=== PATIENT | male | born 1980 | race Caucasian/White ===

== ENCOUNTER 2019-03-29 12:44 | Emergency (ER) | payer MEDICARE, MEDICAID ==
[~2019-03-29] VITALS: Ht 185.4 cm; Wt 68.0 kg
[~2019-03-29 12:44] MED LIST: ARIP10TA15 PO; OXCA300T4 PO
[2019-03-29 13:02] VITALS: BP 140/41
--- NOTE | 2019-03-29 14:31 | NUR ---
UPON TRIAGE, WITH PT. AND ATTEMPTING TO CHANGE THE PT. AND LOCK UP HIS BELONGINGS, PT. BECAME AGITATED AND STARTED YELLING AND STARTED TO WALK AWAY FROM [facility]. SECURITY WAS CALLED AND HE BECAME ZENIA AND WALKED AWAY. REFUSED ANY CARE.
== END 2019-03-29 14:34 | disposition left against medical advice (07) ==
LOC: ER 12:44
DX: R45.851 Suicidal ideations (principal); Z53.21 Procedure and treatment not carried out due to patient leaving prior to being seen by health care provider

== ENCOUNTER 2019-04-07 20:36 | Emergency (ER) | payer MEDICARE, MEDICAID | END 2019-04-07 21:38 | disposition left against medical advice (07) | LOC: ER 20:36 | DX: Z00.8 Encounter for other general examination (principal); Z53.21 Procedure and treatment not carried out due to patient leaving prior to being seen by health care provider ==

== ENCOUNTER 2019-05-14 01:01 | Inpatient (IN) | payer MEDICARE, MEDICAID ==
[~2019-05-14] VITALS: Ht 185.4 cm; Wt 87.4 kg
[2019-05-14] MEDS ORDERED: ondansetron 4mg rapidly disintigrating tab PO ONE (01:45)
[2019-05-14 02:12] LABS: BASOPHILS % (AUTO) 0.2 % (0-1); EOSINOPHILS % (AUTO) 0.2 % (0-6); HEMOGLOBIN 15.1 g/dl (14.0-17.9); MEAN CORPUSCULAR HEMOGLOBIN 31.3 PG (27.0-31.0); MONOCYTES # (AUTO) 0.8 X10'3 (0-0.9)
[2019-05-14 02:13] LABS: HEMATOCRIT 43.3 % (42.0-52.0); LYMPHOCYTES # (AUTO) 0.7 X10'3 (1.1-4.8); LYMPHOCYTES % (AUTO) 4.8 % (21-51); MEAN CORPUSCULAR HGB CONC 34.9 g/dL (33.0-36.5); MEAN CORPUSCULAR VOLUME 89.7 FL (78-98); MEAN PLATELET VOLUME 8.7 FL (7.4-10.4); MONOCYTES % (AUTO) 5.2 % (2-12); NEUTROPHILS % (AUTO) 89.6 % (42-75); PLATELET COUNT 283 X10'3 (140-440); RED BLOOD COUNT 4.83 X10'6 (4.70-6.10); RED CELL DISTRIBUTION WIDTH 14.2 % (11.5-14.5); WHITE BLOOD COUNT 15.6 X10'3 (4.5-11.0)
[2019-05-14 02:17] LABS: URINE AMPHETAMINE SCREEN NEGATIVE (Neg); URINE BARBITUATE SCREEN NEGATIVE (Neg); URINE BENZODIAZEPINES SCREEN NEGATIVE (Neg); URINE CANNABINOID SCREEN NEGATIVE (Neg); URINE COCAINE SCREEN NEGATIVE (Neg); URINE METHADONE SCREEN NEGATIVE (Neg); URINE OPIATE SCREEN NEGATIVE (Neg); URINE PHENCYCLIDINE SCREEN NEGATIVE (Neg)
[2019-05-14 02:18] LABS: ALANINE AMINOTRANSFERASE 33 U/L (12-78); ALBUMIN 4.3 G/DL (3.4-5.0); ALBUMIN/GLOBULIN RATIO 1.1 (1.1-1.5); ALKALINE PHOSPHATASE 81 IU/L (46-116); ANION GAP 15 (8-16); ASPARTATE AMINO TRANSFERASE 24 U/L (10-37); BILIRUBIN,TOTAL 0.2 MG/DL (0.1-1.0); BLOOD UREA NITROGEN 16 MG/DL (7-18); BUN/CREATININE RATIO 14.5 (5.4-32.0); CALCIUM 9.2 MG/DL (8.5-10.1); CHLORIDE 108 MMOL/L (99-107); GLUCOSE 128 MG/DL (70-104); POTASSIUM 4.3 MMOL/L (3.5-5.1); SODIUM 145 MMOL/L (135-145); TOTAL CARBON DIOXIDE 22.1 MMOL/L (24-32); TOTAL PROTEIN 8.3 G/DL (6.4-8.2); eGFR 74 ML/MIN
--- NOTE | 2019-05-14 02:19 | NUR ---
patient in bed eyes closed rr even un labored no observable s/s of acute stress at this time will continue to monitor waiting for lab results
[2019-05-14 02:20] LABS: ETHANOL < 0.010 GM/DL (0.0-0.010)
[2019-05-14 02:51] LABS: ACETAMINOPHEN < 2.0 UG/ML (10-30)
[2019-05-14 03:16] LABS: ABG BASE EXCESS -1.2 mmol/L (-2.0-3.0); ABG PH (T) 7.442 (7.350-7.450); ABG PO2 (T) 76.3 mmHg (83-108); ALLEN'S TEST POSITIVE; FCOHb 2.2 % (0.5-1.5); FMetHb 0.1 % (0.3-1.12); FO2Hb 93.8 % (94-100); TOTAL HEMOGLOBIN 15.3 G/dl (14.0-17.9)
--- NOTE | 2019-05-14 03:41 | NUR ---
SPOKE WITH rod from [facility] control ABG Q 4 HRS BMP Q2 HRS SALICYLATE Q 2HRS ACTIVATED CHARCOAL 50 GRAMS BI-CARB 3 AMPS D5W AT 200 mL/HR/, BACK OFF AND BOLUS WITH NS IF PH >7.55 KEEP SERUM PH 7.45-7.55
[2019-05-14] MEDS ORDERED: sodium bicarbonate (8.4%) inj. 100 MEQ in sodium chloride 0.45% 1,000 ML IV ONE (03:50)
[2019-05-14] MEDS ORDERED: sodium bicarbonate (8.4%) inj. 150 MEQ in dextrose 5%-water 1,000 ML IV SCH (03:55)
[2019-05-14] MEDS ORDERED: morphine 2 MG/ML inj. syringe IV PRN (04:20)
[2019-05-14] MEDS: K, MAG and/or Phos replacement - Verify level? MC SCH ×2 (04:20→06:56)
[2019-05-14] MEDS ORDERED: potassium CL 10mEq/100ml bag 100 ML IV PRN ×2 (04:20)
[2019-05-14] MEDS ORDERED: ondansetron/PF 4mg/2ml inj IV PRN (04:20)
[2019-05-14] MEDS ORDERED: potassium Cl 20 mEq SR tablet PO PRN ×2 (04:20)
[2019-05-14] MEDS ORDERED: acetaminophen 325mg tablet PO PRN ×2 (04:20)
[2019-05-14] MEDS: sodium bicarbonate (8.4%) inj. 75 MEQ in dextrose 5%-water 500 ML IV SCH ×4 (04:25→10:07)
[2019-05-14 04:31] LABS: ALBUMIN 4.3 G/DL (3.4-5.0); ANION GAP 12 (8-16); BLOOD UREA NITROGEN 16 MG/DL (7-18); BUN/CREATININE RATIO 14.3 (5.4-32.0); CALCIUM 8.9 MG/DL (8.5-10.1); CHLORIDE 108 MMOL/L (99-107); CREATININE 1.12 MG/DL (0.60-1.10); GLUCOSE 124 MG/DL (70-104); POTASSIUM 4.2 MMOL/L (3.5-5.1); SODIUM 144 MMOL/L (135-145); eGFR 73 ML/MIN
--- NOTE | 2019-05-14 04:45 | NUR ---
ZULMA LEVEL INCREASED TO LEVEL 2 R/T SEVERITY OF ASA LEVEL.
[2019-05-14 05:48] LABS: PARTIAL THROMBOPLASTIN TIME 28 SECONDS (22-32)
[2019-05-14 06:09] LABS: ALBUMIN 4.1 G/DL (3.4-5.0); ANION GAP 14 (8-16); BLOOD UREA NITROGEN 17 MG/DL (7-18); BUN/CREATININE RATIO 14.9 (5.4-32.0); CALCIUM 8.9 MG/DL (8.5-10.1); CHLORIDE 107 MMOL/L (99-107); CREATININE 1.14 MG/DL (0.60-1.10); GLUCOSE 135 MG/DL (70-104); POTASSIUM 3.9 MMOL/L (3.5-5.1); SODIUM 143 MMOL/L (135-145); TOTAL CARBON DIOXIDE 22.4 MMOL/L (24-32); eGFR 71 ML/MIN
--- NOTE | 2019-05-14 06:36 | NUR ---
SBAR TO KELVIN RN NOP QUESTIONS OR CONCERNS AFTER ASSUMING CARE
--- NOTE | 2019-05-14 06:44 | NUR ---
SPOKE WITH JACOB AT [facility] GAVE UPDATE PATIETS LABS IMPROVING
[2019-05-14] MEDS ORDERED: pantoprazole 40mg Tablet.DR PO SCH ×2 (07:30→20:00)
[2019-05-14 08:01] VITALS: BP 96/55
--- NOTE | 2019-05-14 08:08 | NUR ---
Received from ER, report from Opal. Oriented pt to room, unit, and plan of care. Pt refuses vu placement.
[2019-05-14 08:31] LABS: ABG BASE EXCESS -0.7 mmol/L (-2.0-3.0); ABG HCO3 20.2 mmol/L (22.0-26.0); ABG OXYGEN SATURATION 98.2 % (95-98); ABG PCO2 (T) 24.9 mmHg (35.0-45.0); ABG PH (T) 7.528 (7.350-7.450); ABG PO2 (T) 109.9 mmHg (83-108); ALLEN'S TEST POSITIVE; FCOHb 0.7 % (0.5-1.5); FMetHb 0.1 % (0.3-1.12); FO2Hb 97.4 % (94-100); TOTAL HEMOGLOBIN 14.7 G/dl (14.0-17.9)
[2019-05-14 09:00] VITALS: BP 97/61
--- NOTE | 2019-05-14 09:11 | NUR ---
Dr Godoy aware of ABG results. Stated to keep pt on bicarb gtt.
[2019-05-14 09:24] LABS: BLOOD UREA NITROGEN 17 MG/DL (7-18); BUN/CREATININE RATIO 14.5 (5.4-32.0); CALCIUM 8.5 MG/DL (8.5-10.1); CHLORIDE 106 MMOL/L (99-107); CREATININE 1.17 MG/DL (0.60-1.10); GLUCOSE 106 MG/DL (70-104); POTASSIUM 3.5 MMOL/L (3.5-5.1); TOTAL CARBON DIOXIDE 26.4 MMOL/L (24-32); eGFR 69 ML/MIN
[2019-05-14 09:26] LABS: ANION GAP 10 (8-16); SODIUM 142 MMOL/L (135-145)
[2019-05-14 10:00] VITALS: BP 107/58
--- NOTE | 2019-05-14 11:32 | NUR ---
Dr Godoy in to make rounds. Pt became very agitated, stating he was leaving. Nursing animal shelter supervisor and gas charger at bedside and explained to pt in detail all of risks involved in leaving AMA, including . Pt continues to state he is leaving. He was informed that we will have to call [employer] once he walks out of hospital. He stated he has already called them himself. IV dc'd. Pt refused to sign AMA form. Security escorted pt out.
== END 2019-05-14 11:30 | disposition left against medical advice (07) | DRG 918 ==
LOC: ER 01:02 → ED HOLD 04:17 → CICU 2S 07:10
PROVIDERS: ADMIT Internal Medicine Critical Care Medicine; ATTEND Internal Medicine Critical Care Medicine
DX: T39.011A Poisoning by aspirin, accidental (unintentional), initial encounter (principal); Z53.29 Procedure and treatment not carried out because of patient's decision for other reasons; F17.210 Nicotine dependence, cigarettes, uncomplicated; J45.909 Unspecified asthma, uncomplicated; F32.9 Major depressive disorder, single episode, unspecified; K21.9 Gastro-esophageal reflux disease without esophagitis; Y92.89 Other specified places as the place of occurrence of the external cause
CPT/HCPCS: 36415; 36600; 80048; 80053; 80305; 80320; 80329; 82803; 85018; 85025; 85610; 85730; 87081; 99291; G0378

== ENCOUNTER 2019-05-14 12:02 | Emergency (ER) | payer MEDICARE, MEDICAID ==
[~2019-05-14] VITALS: Ht 185.4 cm; Wt 89.0 kg
[2019-05-14 12:04] VITALS: BP 115/67
[2019-05-14] MEDS ORDERED: ipratropium/albuterol 3ml nebule NEB ONE (13:35)
[2019-05-14] MEDS ORDERED: predniSONE 20 mg tablet PO ONE (13:35)
[2019-05-14] MEDS ORDERED: morphine 4 MG/ML inj SYRINge IM ONE (13:35)
[2019-05-14] MEDS ORDERED: HYDROcodone/acetaminophen 10/325mg tab PO ONE (13:35)
== END 2019-05-14 14:17 | disposition home or self-care (01) ==
LOC: ER 12:03
DX: T39.0 Poisoning by, adverse effect of and underdosing of salicylates (principal); J45.909 Unspecified asthma, uncomplicated; K21.9 Gastro-esophageal reflux disease without esophagitis; F32.9 Major depressive disorder, single episode, unspecified; Z90.49 Acquired absence of other specified parts of digestive tract; Z98.890 Other specified postprocedural states
CPT/HCPCS: 99281

== ENCOUNTER 2020-04-16 16:06 | Emergency (ER) | payer MEDICARE, MEDICAID ==
[~2020-04-16] VITALS: Ht 182.9 cm; Wt 93.0 kg
[2020-04-16 16:18] VITALS: BP 143/94
== END 2020-04-16 17:10 | disposition left against medical advice (07) ==
LOC: ER 16:06
DX: T18.9XXA Foreign body of alimentary tract, part unspecified, initial encounter (principal); J45.909 Unspecified asthma, uncomplicated; K21.9 Gastro-esophageal reflux disease without esophagitis; F32.9 Major depressive disorder, single episode, unspecified; Z90.49 Acquired absence of other specified parts of digestive tract; Z72.89 Other problems related to lifestyle; Z98.890 Other specified postprocedural states; X58.XXXA Exposure to other specified factors, initial encounter; Y93.89 Activity, other specified; Y92.89 Other specified places as the place of occurrence of the external cause; Y99.8 Other external cause status
CPT/HCPCS: 72170; 74018; 99284

== ENCOUNTER 2020-06-04 04:13 | Emergency (ER) | payer MEDICARE, MEDICAID ==
[~2020-06-04] VITALS: Ht 180.3 cm; Wt 90.0 kg
[~2020-06-04 04:13] MED LIST changes: -ARIP10TA15 PO; +NO HOME MEDS; -OXCA300T4 PO
--- NOTE | 2020-06-04 04:17 | NUR ---
pt refusing to have his vitals taken. He is demanding that we give him his ankle monitor devulcanizer charger and cell phone devulcanizer charger. When told that he will not be able to have his belongings pt becomes angry and yells "shut up" and then looks at me and yells "fuck you bitch" - pt in hand cuffs and [employer] at bedside.
[2020-06-04] MEDS ORDERED: diphenhydrAMINE 50 mg/ml inj IM ONE (04:25)
[2020-06-04] MEDS ORDERED: LORazepam 2 mg/ml vial IM ONE (04:25)
[2020-06-04] MEDS ORDERED: OLANZapine **IM** 10 mg inj. IM ONE (04:25)
--- NOTE | 2020-06-04 04:34 | NUR ---
pt is still upset and not able to follow instructions. attempts have been made to verbally de-escalate the patient but are not effective. [employer] and security at bedside. MD has ordered medication for patient.
--- NOTE | 2020-06-04 04:37 | NUR ---
pt hit head against wall
--- NOTE | 2020-06-04 04:41 | NUR ---
pt telling the RN "you need to go back to [facility]" - pt has been medicated and hand cuffs have been removed by [employer] - pt is being changed into green scrubs.
[2020-06-04 05:21] LABS: BASOPHILS % (AUTO) 0.7 % (0-1); EOSINOPHILS # (AUTO) 0.4 X10'3 (0-0.9); EOSINOPHILS % (AUTO) 8.3 % (0-6); HEMATOCRIT 40.3 % (42.0-52.0); HEMOGLOBIN 13.6 g/dl (14.0-17.9); LYMPHOCYTES % (AUTO) 21.4 % (21-51); MEAN CORPUSCULAR HEMOGLOBIN 30.9 PG (27.0-31.0); MEAN CORPUSCULAR HGB CONC 33.9 g/dL (33.0-36.5); MEAN CORPUSCULAR VOLUME 91.3 FL (78-98); MEAN PLATELET VOLUME 8.5 FL (7.4-10.4); MONOCYTES # (AUTO) 0.5 X10'3 (0-0.9); MONOCYTES % (AUTO) 10.7 % (2-12); NEUTROPHILS # (AUTO) 2.6 X10'3 (1.8-7.7); NEUTROPHILS % (AUTO) 58.9 % (42-75); PLATELET COUNT 222 X10'3 (140-440); RED BLOOD COUNT 4.42 X10'6 (4.70-6.10); RED CELL DISTRIBUTION WIDTH 14.4 % (11.5-14.5); WHITE BLOOD COUNT 4.5 X10'3 (4.5-11.0)
--- NOTE | 2020-06-04 05:31 | NUR ---
pt has been out of restraints for 10 mins - behavior has been appropriate. pt in view of RN
[2020-06-04 05:34] LABS: ALANINE AMINOTRANSFERASE 20 U/L (12-78); ALBUMIN 3.9 G/DL (3.4-5.0); ALBUMIN/GLOBULIN RATIO 1.1 (1.1-1.5); ALKALINE PHOSPHATASE 89 IU/L (46-116); ANION GAP 7 (8-16); ASPARTATE AMINO TRANSFERASE 17 U/L (10-37); BILIRUBIN,TOTAL 0.2 MG/DL (0.1-1.0); BLOOD UREA NITROGEN 9 MG/DL (7-18); BUN/CREATININE RATIO 9.6 (5.4-32.0); CALCIUM 8.6 MG/DL (8.5-10.1); CHLORIDE 104 MMOL/L (99-107); CREATININE 0.94 MG/DL (0.60-1.10); ETHANOL < 0.010 GM/DL (0.0-0.010); GLUCOSE 133 MG/DL (70-104); POTASSIUM 3.6 MMOL/L (3.5-5.1); SODIUM 138 MMOL/L (135-145); TOTAL CARBON DIOXIDE 27.3 MMOL/L (24-32); TOTAL PROTEIN 7.3 G/DL (6.4-8.2); eGFR 88 ML/MIN
[2020-06-04 05:35] LABS: ACETAMINOPHEN < 2.0 UG/ML (10-30)
--- NOTE | 2020-06-04 05:38 | NUR ---
unable to complete all psych assessments as pt is not cooperative with questioning. Pt has now been medicated and is drowsy and again not wishing to answer questions although is following safety instructions at this time. vitals WNL and pt exhibits no s\s of distress.
--- NOTE | 2020-06-04 06:35 | NUR ---
Assumed care of patient. Recieved report from SAUL Elliott. Pt was brought over to [facility] via gurney. Pt was transferred to bed 20. Pt sleeping comfortably on left side, no distress noted.
--- NOTE | 2020-06-04 08:33 | NUR ---
Pt sleeping comfortably lying in supine position. Audible snoring sounds heard. No distress noted.
--- NOTE | 2020-06-04 08:40 | NUR ---
Pt woke needing to void. Pt was asked to leave a urine sample. Pt was abrasive and refused. Pt returned to his bed and pulled covers up to his neck.
--- NOTE | 2020-06-04 10:34 | NUR ---
Pt sleeping comfortably on right side. Respirations even and unlabored.
--- NOTE | 2020-06-04 12:36 | NUR ---
Pt woke enough to eat his lunch then fell back to sleep, attempted to get another U/A, but pt refused.
[2020-06-04 14:24] VITALS: BP 138/89
== END 2020-06-04 13:45 | disposition home or self-care (01) ==
LOC: ER 04:15
DX: T39.012A Poisoning by aspirin, intentional self-harm, initial encounter (principal); R45.1 Restlessness and agitation; F15.10 Other stimulant abuse, uncomplicated; J45.909 Unspecified asthma, uncomplicated; K21.9 Gastro-esophageal reflux disease without esophagitis; Z72.89 Other problems related to lifestyle; Z90.49 Acquired absence of other specified parts of digestive tract; Z98.890 Other specified postprocedural states; R45.851 Suicidal ideations; Z76.5 Malingerer [conscious simulation]; Y92.89 Other specified places as the place of occurrence of the external cause
CPT/HCPCS: 36415; 74018; 80053; 80320; 80329; 85025; 96372; 99285; J1200; J2060; J3490

== ENCOUNTER 2022-06-25 07:40 | Emergency (ER) | payer OTHER, MEDICAID ==
[~2022-06-25] VITALS: Ht 180.3 cm; Wt 65.0 kg
[2022-06-25 08:17] LABS: BASOPHILS % (AUTO) 0.4 % (0-1); HEMATOCRIT 41.9 % (42.0-52.0); HEMOGLOBIN 14.2 g/dl (14.0-17.9); LYMPHOCYTES # (AUTO) 1.5 X10'3 (1.1-4.8); LYMPHOCYTES % (AUTO) 29.6 % (21-51); MEAN CORPUSCULAR HEMOGLOBIN 29.7 PG (27.0-31.0); MEAN CORPUSCULAR HGB CONC 33.8 g/dL (33.0-36.5); MONOCYTES # (AUTO) 0.7 X10'3 (0-0.9); MONOCYTES % (AUTO) 13.6 % (2-12); NEUTROPHILS # (AUTO) 2.7 X10'3 (1.8-7.7); NEUTROPHILS % (AUTO) 55.4 % (42-75); PLATELET COUNT 251 X10'3 (140-440); RED BLOOD COUNT 4.76 X10'6 (4.70-6.10); RED CELL DISTRIBUTION WIDTH 13.9 % (11.5-14.5); WHITE BLOOD COUNT 4.9 X10'3 (4.5-11.0)
[2022-06-25] MEDS ORDERED: normal saline 1000ml 1,000 ML IV ONE (08:25)
--- NOTE | 2022-06-25 08:35 | NUR ---
MD AT BEDSIDE FOR EVAL - 1LNS BOLUS RUNNING
[2022-06-25] MEDS ORDERED: LIDOcaine Viscous 15ml cup MM ONE (08:40)
[2022-06-25] MEDS ORDERED: famotidine/PF 10 mg/ml inj IV ONE (08:40)
[2022-06-25] MEDS ORDERED: mag hydrox/Alum hydrox/simeth 30ml oral suspension PO ONE (08:40)
[2022-06-25] MEDS ORDERED: aspirin 325mg tablet PO ONE (08:40)
[2022-06-25] MEDS ORDERED: LORazepam 2 mg/ml vial IV ONE (08:40)
[2022-06-25 09:02] LABS: ALANINE AMINOTRANSFERASE 27 U/L (12-78); ALBUMIN/GLOBULIN RATIO 1.1 (1.1-1.5); ALKALINE PHOSPHATASE 100 IU/L (46-116); ANION GAP 6 (8-16); ASPARTATE AMINO TRANSFERASE 25 U/L (10-37); BILIRUBIN,TOTAL 0.3 MG/DL (0.1-1.0); BLOOD UREA NITROGEN 15 MG/DL (7-18); BUN/CREATININE RATIO 17.6 (10.0-20.0); CALCIUM 8.6 MG/DL (8.5-10.1); CHLORIDE 105 MMOL/L (99-107); CREATININE 0.85 MG/DL (0.60-1.10); GLUCOSE 96 MG/DL (70-104); SODIUM 142 MMOL/L (135-145); TOTAL CARBON DIOXIDE 30.9 MMOL/L (24-32); TOTAL PROTEIN 7.8 G/DL (6.4-8.2); eGFR > 90 ML/MIN
--- NOTE | 2022-06-25 09:07 | NUR ---
PT AMBULATORY TO RESTROOM FOR BM AND THEN BACK TO BED. URINE SAMPLE COLLECTED AND SENT TO LAB
[2022-06-25 09:12] VITALS: BP 136/81
--- NOTE | 2022-06-25 09:12 | NUR ---
UPON RETURNING TO ROOM WENT TO RECONNECT NS BOLUS AND PT IS REFUSING THIS. MD JAFFE
[2022-06-25 09:47] LABS: URINE AMPHETAMINE SCREEN NEGATIVE (Neg); URINE BARBITUATE SCREEN NEGATIVE (Neg); URINE BENZODIAZEPINES SCREEN NEGATIVE (Neg); URINE CANNABINOID SCREEN NEGATIVE (Neg); URINE COCAINE SCREEN NEGATIVE (Neg); URINE METHADONE SCREEN NEGATIVE (Neg); URINE OPIATE SCREEN POSITIVE (Neg); URINE PHENCYCLIDINE SCREEN NEGATIVE (Neg)
[2022-06-25 09:55] LABS: CLARITY,URINE CLEAR (Clear); COLOR,URINE YELLOW (Yellow); GLUCOSE, URINE NEGATIVE (Neg); KETONES,URINE NEGATIVE (Neg); LEUKOCYTE ESTERASE ,URINE NEGATIVE (Neg); NITRITES, URINE NEGATIVE (Neg); OCCULT BLOOD,URINE NEGATIVE (Neg); PH,URINE 7.5 (4.8-8.0); PROTEIN,URINE NEGATIVE (Neg); UROBILINOGEN,URINE 0.2 E.U/dL (0.2-1.0)
[2022-06-25 09:56] LABS: UA COLLECTION TYPE VOIDED
== END 2022-06-25 10:09 | disposition home or self-care (01) ==
LOC: ER 07:40
DX: R07.9 Chest pain, unspecified (principal); R10.13 Epigastric pain; F31.9 Bipolar disorder, unspecified; Z98.890 Other specified postprocedural states; Z90.49 Acquired absence of other specified parts of digestive tract
CPT/HCPCS: 36415; 71045; 80053; 80305; 81003; 83880; 84484; 85025; 93005; 96361; 96374; 99285; J3490; J7030; 96375

== ENCOUNTER 2022-08-14 19:07 | Emergency (ER) | payer OTHER, MEDICAID ==
[~2022-08-14] VITALS: Ht 185.4 cm; Wt 67.7 kg
[2022-08-14 19:23] VITALS: BP 115/84
== END 2022-08-14 20:53 | disposition left against medical advice (07) ==
LOC: ER 19:07
DX: F29 Unspecified psychosis not due to a substance or known physiological condition (principal); Z53.21 Procedure and treatment not carried out due to patient leaving prior to being seen by health care provider
CPT/HCPCS: 99281

== ENCOUNTER 2022-12-19 16:19 | Emergency (ER) | payer OTHER, MEDICAID ==
[~2022-12-19] VITALS: Ht 182.9 cm; Wt 89.0 kg
[2022-12-19 17:07] VITALS: BP 120/73; PULSE 92; RESP 17; TEMP 98.4; O2SAT 100
== END 2022-12-19 23:44 | disposition left against medical advice (07) ==
LOC: ER 16:19
DX: Z04.6 Encounter for general psychiatric examination, requested by authority (principal); Z53.21 Procedure and treatment not carried out due to patient leaving prior to being seen by health care provider
CPT/HCPCS: 99281

== ENCOUNTER 2024-06-10 19:44 | Emergency (ER) | payer BC, MEDICAID ==
[~2024-06-10] VITALS: Ht 172.7 cm; Wt 81.8 kg
== END 2024-06-10 20:48 ==
LOC: ER 19:45
DX: Z02.89 Encounter for other administrative examinations (principal); J45.909 Unspecified asthma, uncomplicated; Z90.49 Acquired absence of other specified parts of digestive tract
CPT/HCPCS: 74022; 99283

== ENCOUNTER 2024-06-16 21:28 | Emergency (ER) | payer BC, MEDICAID ==
[~2024-06-16] VITALS: Ht 185.4 cm; Wt 64.5 kg
[2024-06-16 21:45] VITALS: BP 118/80; PULSE 80; RESP 18; O2SAT 99
[2024-06-16] MEDS ORDERED: diphenoxylate/atropine tablet (Lomotil) PO ONE (23:15)
[2024-06-16] MEDS: ondansetron 4mg rapidly disintigrating tab PO ONE (23:31)
[2024-06-16] MEDS: diphenoxylate/atropine tablet (Lomotil) PO ONE (23:50)
[2024-06-17] MEDS ORDERED: LOPE2CAP PO (00:01)
[2024-06-17] MEDS ORDERED: ONDA-245 PO (00:01)
[2024-06-17 00:06] VITALS: TEMP 98
== END 2024-06-17 00:23 | disposition home or self-care (01) ==
LOC: ER 21:28
DX: R11.0 Nausea (principal); R10.84 Generalized abdominal pain; R19.7 Diarrhea, unspecified; J45.909 Unspecified asthma, uncomplicated; F31.9 Bipolar disorder, unspecified; Z90.49 Acquired absence of other specified parts of digestive tract
CPT/HCPCS: 99283

== ENCOUNTER 2024-06-24 20:00 | Emergency (ER) | payer BC, MEDICAID ==
[~2024-06-24] VITALS: Ht 175.3 cm; Wt 68.7 kg
[~2024-06-24 20:00] MED LIST changes: +LOPE2CAP PO; +ONDA-245 PO
[2024-06-24 20:14] VITALS: BP 148/78; PULSE 97; RESP 15; TEMP 96.8; O2SAT 99
[2024-06-24] MEDS: magnesium citrate 296ml oral solution PO ONE (21:26)
== END 2024-06-24 21:46 | disposition home or self-care (01) ==
LOC: ER 20:02
DX: T18.9XXA Foreign body of alimentary tract, part unspecified, initial encounter (principal); J45.909 Unspecified asthma, uncomplicated; K21.9 Gastro-esophageal reflux disease without esophagitis; Z79.899 Other long term (current) drug therapy; Z90.49 Acquired absence of other specified parts of digestive tract; W44.9XXA Unspecified foreign body entering into or through a natural orifice, initial encounter; Y93.89 Activity, other specified; Y92.89 Other specified places as the place of occurrence of the external cause; Y99.8 Other external cause status
CPT/HCPCS: 70360; 71045; 74018; 99284

== ENCOUNTER 2024-06-26 11:22 | Emergency (ER) | payer BC, MEDICAID ==
[~2024-06-26] VITALS: Ht 182.9 cm; Wt 87.9 kg
[2024-06-26 11:31] VITALS: BP 142/71; PULSE 111; RESP 16; TEMP 97.7; O2SAT 96
== END 2024-06-26 13:16 | disposition left against medical advice (07) ==
LOC: ER 11:22
DX: R10.9 Unspecified abdominal pain (principal); R42 Dizziness and giddiness; Z53.21 Procedure and treatment not carried out due to patient leaving prior to being seen by health care provider
CPT/HCPCS: 74018; 74176

== ENCOUNTER 2024-06-27 10:54 | Emergency (ER) | payer BC, MEDICAID ==
[~2024-06-27] VITALS: Ht 177.8 cm; Wt 87.3 kg
[2024-06-27 11:38] VITALS: BP 105/72; PULSE 110; RESP 16; TEMP 98.2; O2SAT 98
== END 2024-06-27 11:20 | disposition home or self-care (01) ==
LOC: ER 10:54
DX: S86.912A Strain of unspecified muscle(s) and tendon(s) at lower leg level, left leg, initial encounter (principal); J45.909 Unspecified asthma, uncomplicated; K21.9 Gastro-esophageal reflux disease without esophagitis; F32.A Depression, unspecified; Z90.49 Acquired absence of other specified parts of digestive tract; Z98.890 Other specified postprocedural states; X58.XXXA Exposure to other specified factors, initial encounter; Y93.89 Activity, other specified; Y92.89 Other specified places as the place of occurrence of the external cause; Y99.8 Other external cause status
CPT/HCPCS: 99281

== ENCOUNTER 2024-06-30 16:12 | Emergency (ER) | payer BC, MEDICAID ==
[~2024-06-30] VITALS: Ht 182.9 cm; Wt 63.0 kg
[2024-06-30 16:54] VITALS: BP 129/82; PULSE 104; RESP 17; TEMP 99.1; O2SAT 97
== END 2024-06-30 18:41 | disposition left against medical advice (07) ==
LOC: ER 16:13
DX: R07.89 Other chest pain (principal); J45.909 Unspecified asthma, uncomplicated; K21.9 Gastro-esophageal reflux disease without esophagitis; F32.A Depression, unspecified; Z90.49 Acquired absence of other specified parts of digestive tract; Z72.89 Other problems related to lifestyle
CPT/HCPCS: 71046; 74018; 93005; 99284

== ENCOUNTER 2024-07-11 12:28 | Emergency (ER) | payer BC, MEDICAID ==
[~2024-07-11] VITALS: Ht 172.7 cm; Wt 91.0 kg
[2024-07-11 12:30] VITALS: BP 129/80; PULSE 93; RESP 16; TEMP 98; O2SAT 98
== END 2024-07-11 12:50 | disposition left against medical advice (07) ==
LOC: ER 12:29
DX: T18.9XXA Foreign body of alimentary tract, part unspecified, initial encounter (principal); Z53.21 Procedure and treatment not carried out due to patient leaving prior to being seen by health care provider; W44.9XXA Unspecified foreign body entering into or through a natural orifice, initial encounter; Y93.89 Activity, other specified; Y92.89 Other specified places as the place of occurrence of the external cause; Y99.8 Other external cause status

== ENCOUNTER 2024-07-25 20:31 | Emergency (ER) | payer BC, MEDICAID ==
[~2024-07-25] VITALS: Ht 185.4 cm; Wt 74.2 kg
[2024-07-25 20:53] VITALS: BP 145/89; PULSE 89; RESP 18; TEMP 98.2; O2SAT 98
== END 2024-07-25 23:31 | disposition left against medical advice (07) ==
LOC: ER 20:32
DX: M79.662 Pain in left lower leg (principal); Z53.21 Procedure and treatment not carried out due to patient leaving prior to being seen by health care provider

== ENCOUNTER 2024-08-15 13:20 | Emergency (ER) | payer BC, MEDICAID ==
[~2024-08-15] VITALS: Ht 182.9 cm; Wt 95.0 kg
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
--- NOTE | 2024-08-15 13:33 | ELECTROCARDIOGRAPH REPORT ---
[facility] Test Date: 2024-08-15 Test Time: 13:31:32 Pat Name: FREDERICK CASEY Department: EMERGENCY ROOM Room: Gender: M Automatic Stacker: [place] : 1980 Requested By: DILIP HALEY Order Number: [id number] Reading MD: Dr. Cong Hui Measurements Intervals [place] Rate: 89 P: 73 [place]: 161 QRS: 70 QRSD: 68 T: 49 QT: 326 QTc: 397 Interpretive Statements Sinus rhythm Electronically Signed On 08-17-2024 21:44:[address] Cong Hui Please click the below link to view image of tracing.
[2024-08-15 13:35] VITALS: TEMP 98.2
[2024-08-15 13:56] LABS: BASOPHILS % (AUTO) 0.3 % (0-1); EOSINOPHILS # (AUTO) 0.2 X10'3 (0-0.9); EOSINOPHILS % (AUTO) 3.1 % (0-6); HEMATOCRIT 36.7 % (42.0-52.0); HEMOGLOBIN 12.5 g/dl (14.0-17.9); LYMPHOCYTES # (AUTO) 0.9 X10'3 (1.1-4.8); LYMPHOCYTES % (AUTO) 17.5 % (21-51); MEAN CORPUSCULAR HEMOGLOBIN 29.9 PG (27.0-31.0); MEAN CORPUSCULAR HGB CONC 34.1 g/dL (33.0-36.5); MEAN CORPUSCULAR VOLUME 87.8 FL (78-98); MEAN PLATELET VOLUME 8.2 FL (7.4-10.4); MONOCYTES # (AUTO) 0.6 X10'3 (0-0.9); MONOCYTES % (AUTO) 11.1 % (2-12); NEUTROPHILS # (AUTO) 3.6 X10'3 (1.8-7.7); PLATELET COUNT 224 X10'3 (140-440); RED BLOOD COUNT 4.18 X10'6 (4.70-6.10); RED CELL DISTRIBUTION WIDTH 14.2 % (11.5-14.5); WHITE BLOOD COUNT 5.3 X10'3 (4.5-11.0)
--- NOTE | 2024-08-15 14:04 | RADIOLOGY REPORT ---
EXAM: DI CHEST,SINGLE VIEW REASON FOR EXAM: CP TECHNIQUE: 1 view of the chest COMPARISON: DI CHEST,SINGLE VIEW on DOS: 06/24/24 FINDINGS/IMPRESSION: LUNGS: Minimally increased interstitial markings in the left lung base. Correlate for atelectasis an d/or peripheral interstitial edema. MEDIASTINUM: Unremarkable BONES: No acute osseous abnormality OTHER: None
[2024-08-15 14:16] LABS: ALANINE AMINOTRANSFERASE 27 U/L (12-78); ALBUMIN 3.2 G/DL (3.4-5.0); ALBUMIN/GLOBULIN RATIO 0.9 (1.1-1.5); ALKALINE PHOSPHATASE 99 IU/L (46-116); ANION GAP 5 (8-16); ASPARTATE AMINO TRANSFERASE 18 U/L (10-37); BILIRUBIN,TOTAL 0.3 MG/DL (0.1-1.0); BLOOD UREA NITROGEN 13 MG/DL (7-18); CALCIUM 8.1 MG/DL (8.5-10.1); CHLORIDE 102 MMOL/L (99-107); CREATININE 0.65 MG/DL (0.60-1.10); GLUCOSE 132 MG/DL (70-104); POTASSIUM 4.2 MMOL/L (3.5-5.1); SODIUM 140 MMOL/L (135-145); TOTAL CARBON DIOXIDE 33.2 MMOL/L (24-32); TOTAL PROTEIN 6.7 G/DL (6.4-8.2); eCRCL 158 ML/MIN; eGFR > 90 ML/MIN
[2024-08-15 14:23] LABS: PRO BRAIN NATRIURETIC PEPTIDE 145 PG/ML (0-125)
[2024-08-15 15:15] VITALS: BP 134/84; PULSE 82; RESP 15; O2SAT 99
== END 2024-08-15 15:15 | disposition home or self-care (01) ==
LOC: ER 13:20
DX: R55 Syncope and collapse (principal); J45.909 Unspecified asthma, uncomplicated; F32.A Depression, unspecified; Z90.49 Acquired absence of other specified parts of digestive tract
CPT/HCPCS: 36415; 71045; 80053; 83880; 84484; 85025; 93005; 99285

== ENCOUNTER 2024-08-30 14:15 | Emergency (ER) | payer BC, MEDICAID | END 2024-08-30 15:34 | disposition left against medical advice (07) | LOC: ER 14:15 | DX: L08.9 Local infection of the skin and subcutaneous tissue, unspecified (principal); Z53.21 Procedure and treatment not carried out due to patient leaving prior to being seen by health care provider ==

== ENCOUNTER 2024-09-04 12:55 | Emergency (ER) | payer BC, MEDICAID ==
[2024-09-04] VITALS (11 sets, daily range): BP systolic 122–161; BP diastolic 74–101; PULSE 18–92; RESP 1–20; O2SAT 95–100
[~2024-09-04] VITALS: Ht 185.4 cm; Wt 79.5 kg
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
[2024-09-04] MEDS: OLANZapine **IM** 10 mg inj. IM ONE (13:13)
[2024-09-04] MEDS: LORazepam 2 mg/ml vial IM ONE (13:13)
[2024-09-04] MEDS: diphenhydrAMINE 50 mg/ml inj IM ONE (13:32)
--- NOTE | 2024-09-04 14:16 | ELECTROCARDIOGRAPH REPORT ---
[facility] Test Date: 2024-09-04 Test Time: 14:14:47 Pat Name: FREDERICK CASEY Department: [facility]- Patient ID: [id number] Room: Gender: M Executive Housekeeper: : 1980 Requested By: MIRI SALAZAR Order Number: [id number] Reading MD: Measurements Intervals [place] Rate: 83 P: 50 [place]: 163 QRS: 64 QRSD: 94 T: 30 QT: 369 QTc: 434 Interpretive Statements Sinus rhythm Baseline wander in lead(s) V1 Please click the below link to view image of tracing.
[2024-09-04 14:30] LABS: BASOPHILS % (AUTO) 0.8 % (0-1); EOSINOPHILS # (AUTO) 0.1 X10'3 (0-0.9); EOSINOPHILS % (AUTO) 2.7 % (0-6); HEMATOCRIT 37.2 % (42.0-52.0); HEMOGLOBIN 12.8 g/dl (14.0-17.9); LYMPHOCYTES # (AUTO) 0.9 X10'3 (1.1-4.8); LYMPHOCYTES % (AUTO) 24.8 % (21-51); MEAN CORPUSCULAR HEMOGLOBIN 29.9 PG (27.0-31.0); MEAN CORPUSCULAR HGB CONC 34.4 g/dL (33.0-36.5); MONOCYTES # (AUTO) 0.4 X10'3 (0-0.9); MONOCYTES % (AUTO) 12.4 % (2-12); NEUTROPHILS # (AUTO) 2.2 X10'3 (1.8-7.7); NEUTROPHILS % (AUTO) 59.3 % (42-75); PLATELET COUNT 215 X10'3 (140-440); RED BLOOD COUNT 4.27 X10'6 (4.70-6.10); RED CELL DISTRIBUTION WIDTH 14.2 % (11.5-14.5); WHITE BLOOD COUNT 3.6 X10'3 (4.5-11.0)
--- NOTE | 2024-09-04 14:35 | RADIOLOGY REPORT ---
EXAM: DI ABDOMEN,SINGLE VIEW(KUB) HISTORY: reports swallowed razor blade COMPARISON: DI ABDOMEN,SINGLE VIEW(KUB) on DOS: 06/30/24, DI ABDOMEN,SINGLE VIEW(KUB) on DOS: 06/26/24, DI ABDOMEN,SINGLE VIEW(KUB) on DOS: 06/24/24 TECHNIQUE: Single AP of the abdomen and pelvis was obtained. Findings: Frontal view of the abdomen demonstrates a nonobstructive bowel gas pattern. No visualized renal calc surendra. There is no evidence of an acute fracture, dislocation, blastic, or lytic lesions. The visualized portions of the lung bases are unremarkable. 3.5 cm rectangular foreign body overlying the left upper quadrant. No superficial soft tissue abnormalities. Impression: 1. Nonobstructive bowel gas pattern. 2. 3.5 cm rectangular foreign body overlying the left upper quadrant.
[2024-09-04 14:37] LABS: ALBUMIN 3.6 G/DL (3.4-5.0); ANION GAP 10 (8-16); BLOOD UREA NITROGEN 12 MG/DL (7-18); BUN/CREATININE RATIO 10.5 (10.0-20.0); CALCIUM 8.3 MG/DL (8.5-10.1); CHLORIDE 109 MMOL/L (99-107); CREATININE 1.14 MG/DL (0.60-1.10); GLUCOSE 193 MG/DL (70-104); SODIUM 146 MMOL/L (135-145); TOTAL CARBON DIOXIDE 27.2 MMOL/L (24-32); eCRCL 92 ML/MIN; eGFR 69 ML/MIN
[2024-09-04] MEDS: potassium Cl 20 mEq SR tablet PO ONE (14:45)
[2024-09-04 14:50] LABS: ETHANOL < 10 MG/DL (<10)
[2024-09-04] MEDS ORDERED: MIDAZolam 1 MG/ML 5ML VIAL ONE (15:41)
[2024-09-04] MEDS ORDERED: glucagon, human recombinant 1mg kit ONE (15:41)
[2024-09-04] MEDS ORDERED: fentaNYL/PF 50MCG/1 ML 2ML syringe ONE (15:41)
[2024-09-04] MEDS ORDERED: propofol 10mg/ml 20ml vial IV ONE (17:04)
[2024-09-04] MEDS: magnesium sulf-water 2g/50mL 50 ML IV ONE (20:20)
[2024-09-04] MEDS: potassium Cl 40MEQ/1/2NS 520ml 520 ML IV PRN (20:56)
[2024-09-04] MEDS: diphenhydrAMINE 50 mg/ml inj IM PRN (22:40)
[2024-09-04] MEDS: LORazepam 2 mg/ml vial IM PRN (22:40)
[2024-09-04] MEDS: haloperidol lactate 5mg/ml inj IM PRN (22:40)
--- NOTE | 2024-09-04 22:47 | CONSULTATION ---
DATE OF CONSULTATION: 09/04/2024 DICTATING PHYSICIAN: Surinder Farooq MD REFERRING PHYSICIAN: Hospitalist Service. REASON FOR CONSULTATION: Swallowed razor blade. HISTORY OF PRESENT ILLNESS: The patient is sedated, unable to give me any history. History per chart that he swallowed a razor blade. PAST MEDICAL HISTORY: Includes similar history of swallowing razor blade, GERD, psychiatric problems, abdominal surgery for foreign body removal. SOCIAL HISTORY: None available. REVIEW OF SYSTEMS: None available. PHYSICAL EXAMINATION: GENERAL: On examination, the patient is sedated, not arousable. VITAL SIGNS: Stable. LUNGS: Bilateral equal breath sounds. ABDOMEN: Soft. IMAGING STUDIES: X-ray shows foreign body in the left upper quadrant of the abdomen, which is likely to be the razor blade as per the history. ASSESSMENT AND PLAN: Razor blade swallowing, probably in the stomach. We will proceed with upper endoscopy. Emergency consent from the ER physician. Surinder Farooq MD TID: [id number] RECEIPT: [id number] /CLARIBEL
[2024-09-05 03:20] LABS: ALBUMIN 3.3 G/DL (3.4-5.0); ANION GAP 5 (8-16); BLOOD UREA NITROGEN 11 MG/DL (7-18); BUN/CREATININE RATIO 12.9 (10.0-20.0); CALCIUM 8.2 MG/DL (8.5-10.1); CHLORIDE 113 MMOL/L (99-107); CREATININE 0.85 MG/DL (0.60-1.10); GLUCOSE 90 MG/DL (70-104); POTASSIUM 4.2 MMOL/L (3.5-5.1); SODIUM 146 MMOL/L (135-145); TOTAL CARBON DIOXIDE 28.2 MMOL/L (24-32); eCRCL 123 ML/MIN; eGFR > 90 ML/MIN
[2024-09-05] MEDS: LORazepam 2 mg/ml vial ONE (05:50)
[2024-09-05] MEDS: haloperidol lactate 5mg/ml inj ONE (05:51)
[2024-09-05] MEDS: diphenhydrAMINE 50 mg/ml inj IM ONE (06:01)
[2024-09-05] MEDS: OLANZapine **IM** 10 mg inj. IM ONE (14:40)
[2024-09-05 15:29] LABS: BILIRUBIN,URINE NEGATIVE (Neg); CLARITY,URINE CLEAR (Clear); COLOR,URINE YELLOW (Yellow); GLUCOSE, URINE NEGATIVE (Neg); KETONES,URINE NEGATIVE (Neg); LEUKOCYTE ESTERASE ,URINE NEGATIVE (Neg); NITRITES, URINE NEGATIVE (Neg); OCCULT BLOOD,URINE NEGATIVE (Neg); PROTEIN,URINE NEGATIVE (Neg); UROBILINOGEN,URINE 0.2 E.U/dL (0.2-1.0)
[2024-09-05 15:37] LABS: UA COLLECTION TYPE VOIDED
[2024-09-05 15:50] LABS: URINE AMPHETAMINE SCREEN POSITIVE (Neg); URINE BARBITUATE SCREEN NEGATIVE (Neg); URINE BENZODIAZEPINES SCREEN NEGATIVE (Neg); URINE CANNABINOID SCREEN NEGATIVE (Neg); URINE COCAINE SCREEN POSITIVE (Neg); URINE METHADONE SCREEN NEGATIVE (Neg); URINE OPIATE SCREEN NEGATIVE (Neg); URINE PHENCYCLIDINE SCREEN NEGATIVE (Neg)
[2024-09-05] MEDS: olanzapine 10mg tablet PO ONE (18:04)
[2024-09-06] MEDS: OLANZapine **IM** 10 mg inj. IM ONE (09:17)
[2024-09-06] MEDS: OLANZapine 5mg rapidly disint. tablet PO ONE (09:28)
[2024-09-06 18:21] VITALS: TEMP 99.3
[2024-09-06] MEDS: olanzapine 10mg tablet PO ONE (21:40)
[2024-09-06] MEDS ORDERED: olanzapine 10mg tablet PO SCH (21:40)
== END 2024-09-07 10:49 | disposition home or self-care (01) ==
LOC: ER 12:56
DX: R45.851 Suicidal ideations (principal); E87.6 Hypokalemia; T18.9XXA Foreign body of alimentary tract, part unspecified, initial encounter; F23 Brief psychotic disorder; J45.909 Unspecified asthma, uncomplicated; K21.9 Gastro-esophageal reflux disease without esophagitis; F32.A Depression, unspecified; Z20.822 Contact with and (suspected) exposure to COVID-19; Z79.899 Other long term (current) drug therapy; W44.9XXA Unspecified foreign body entering into or through a natural orifice, initial encounter; Y93.89 Activity, other specified; Y92.89 Other specified places as the place of occurrence of the external cause; Y99.8 Other external cause status
CPT/HCPCS: 36415; 43247; 74018; 80048; 80305; 80320; 81003; 85025; 87811; 93005; 96365; 96366; 96368; 96372; 99291; J1200; J1610; J1630; J2060; J2250; J2704; J3010; J3480; J3490; Z7512; A4620

== ENCOUNTER 2024-09-10 15:50 | Emergency (ER) | payer BC, MEDICAID ==
[~2024-09-10] VITALS: Ht 172.7 cm; Wt 84.1 kg
[~2024-09-10 15:50] MED LIST changes: -LOPE2CAP PO; -ONDA-245 PO
[2024-09-10 15:53] VITALS: BP 142/92; PULSE 101; RESP 16; TEMP 98.1; O2SAT 99
[2024-09-10] MEDS: LIDOcaine 1% 30ml preserv. free vial SQ STA (17:02)
--- NOTE | 2024-09-10 17:02 | Physician Documentation ---
History of Present Illness ~ Chief Complaint: Abscess Stated Complaint: FACE/LEG SWELLING/WOUND Time Seen by MD: 16:55 Primary Medical Doctor: none HPI 43-year-old male well known to this ED complaints of an abscess on his right lower extremity and a developing abscess on his left facial cheek. States that started 2 days ago. He says that he has had ongoing abscess on his lower extremity for quite some time. He says he attempts to express it regularly via squeezing. denies any nausea vomiting or fevers. Tetanus Within 5 Years: No Medication Reconciliation Allergies: Coded Allergies: No Known Allergies (Unverified , 06/27/24) Miscellaneous Medications Home Med List (No Home Medications), (Reported) Past Medical History Past Medical History: Asthma, GERD, *PSYCH*, Depression Past Surgical History: abdominal surgery, appendectomy Other Past Surgical History: abdominal surgery for foreign body removal Alcohol Use: Occasionally Drug Use: none Lives with: Other Lives In: Other Physical Exam Vital Signs: Temperature: 98.1, Source: Oral, Heart Rate: 101, Respiratory Rate: 16, BP: 142/92, Pulse Oximetry: 99, Weight: 84.100 Oxygen Flow Rate: 0 Physical Exam General: Alert, no apparent distress. HEENT: PERRL, EOMI, no injection, moist mucous membranes. swelling left cheek, no notabel tooth abscesses Respiratory: Lungs clear, no respiratory distress. Extremities: Normal range of motion, no deformity. large fluctuant abscess 3.5 cm with surrounding erythema. Neurologic: Oriented x4. Psychiatric: Normal mood and affect. Skin: Normal color, warm and dry. No edema, no ecchymosis. Progress Results/Orders Results/Orders Orders - MOE HALEY REPORT MANAGER Laceration/I&D Tray Set Up (09/10/24 ) Completed Orders - MOE HALEY REPORT MANAGER Lidocaine 1% 30ml Vial (Xylocaine 1% Via (09/10/24 16:55) Vital Signs 09/10/24 15:53 Temp 98.1 Pulse 101 Resp 16 B/P (MAP) 142/92 Pulse Ox 99 O2 Flow Rate 0 Departure Disposition: 01 HOME / SELF CARE / HOMELESS Impression: Primary Impression: Abscess Condition: Stable Discharge Instructions: Skin Abscess, [id number] Referrals: NO PRIMARY CARE PROVIDER (PCP) Prescriptions Cephalexin*Monohydrate* (Keflex*) 500 Mg Capsule 1 CAP PO QID, #40 CAP Prov: MOE HALEY REPORT MANAGER 09/10/24 Education Educated: Patient Educated regarding: diagnosis Signature Scribe Signature: sx Attestation: Scribed for Moe Haley Floral Decorator by Moe Haley - DECLAN . 09/10/24 17:34 MOE HALEY REPORT MANAGER Sep 10, 2024 17:02
[2024-09-10] MEDS ORDERED: CEPH-585 PO (17:37)
== END 2024-09-10 18:06 | disposition home or self-care (01) ==
LOC: ER 15:50
DX: L02.415 Cutaneous abscess of right lower limb (principal); L02.01 Cutaneous abscess of face; J45.909 Unspecified asthma, uncomplicated; F32.A Depression, unspecified; K21.9 Gastro-esophageal reflux disease without esophagitis; Z90.49 Acquired absence of other specified parts of digestive tract
CPT/HCPCS: 99283; A6449

== ENCOUNTER 2024-11-03 07:05 | Emergency (ER) | payer BC, MEDICAID ==
[~2024-11-03] VITALS: Ht 175.3 cm; Wt 82.0 kg
[~2024-11-03 07:05] MED LIST changes: +CEPH-585 PO
[2024-11-03 07:35] VITALS: BP 124/91; PULSE 95; RESP 16; TEMP 98; O2SAT 98
[2024-11-03] MEDS ORDERED: ondansetron/PF 4mg/2ml inj IV ONE (08:40)
[2024-11-03] MEDS ORDERED: morphine 4 MG/ML inj SYRINge IV PRN (08:40)
--- NOTE | 2024-11-03 08:48 | Physician Documentation ---
History of Present Illness ~ Chief Complaint: Abdominal Pain Stated Complaint: ABDOMINAL PAIN/VOMITING Time Seen by MD: 07:38 Primary Medical Doctor: none Source: patient Mode of Arrival: POV Exam Limitations: no limitations HPI Chief Complaint: Abdominal pain Caveat: None Independent Historians: None History of Present Illness: Patient is a 43-year-old man who complains of abdominal pain after swallowing three disposable razor heads Thursday night. Patient states that he swallowed them because he was in an argument with his girlfriend. Patient is not forthcoming in describing his symptoms. Suspect methamphetamine use. Patient complains of upper abdominal pain that is constant. Pain is severe. Review of systems: All systems were reviewed and are negative except for what is indicated in the history of present illness. Past Medical History: Asthma, GERD, depression Past Surgical History: Appendectomy, prior abdominal surgery for foreign body removal Social History: Methamphetamine use, alcohol use, tobacco use, homeless Medications: Reviewed as documented Nursing Notes Allergies: Reviewed as documented in Nursing Notes Medication Reconciliation Allergies: Coded Allergies: No Known Allergies (Unverified , 11/03/24) Scheduled Cephalexin*Monohydrate* (Keflex*), 1 CAP PO QID Miscellaneous Medications Home Med List (No Home Medications), (Reported) Past Medical History Past Medical History: Asthma, GERD, *PSYCH*, Depression Past Surgical History: abdominal surgery, appendectomy Other Past Surgical History: abdominal surgery for foreign body removal Alcohol Use: Occasionally Drug Use: none Lives with: Other Lives In: Other Review of Systems All Other Systems at this time: Reviewed and Negative ROS General Appearance: MILD DISTRESS, DISHEVELED, POOR HYGIENE HEENT: Normal OP, moist oral mucosa, PERRL, EOMI Neck: supple, normal ROM, trachea midline Pulmonary: No respiratory distress, CTA, BS equal Cardiac: RRR, no murmur, rub or gallop, GI: nondistended, soft, DIFFUSE TENDERNESS, normal bowel sounds, no guarding, no rebound Extremities: normal ROM, no swelling, non-tender Skin: intact, dry, warm, no rashes Neuro: AAOx3, speech is clear, no focal motor weakness Psych: RESTLESS, POOR EYE CONTACT, no apparent hallucination, normal speech Physical Exam Vital Signs: RN Vital Signs have been reviewed: Yes, Temperature: 98.0, Source: Temporal, Heart Rate: 95, Respiratory Rate: 16, BP: 124/91, Pulse Oximetry: 98, Weight: 82.000 Oxygen Flow Rate: 0 Physical Exam General Appearance: Disheveled, poor hygiene, mild distress HEENT: Normal OP, moist oral mucosa, PERRL, EOMI Neck: supple, normal ROM, trachea midline Pulmonary: No respiratory distress, CTA, BS equal Cardiac: RRR, no murmur, rub or gallop, GI: nondistended, soft, diffuse tenderness, normal bowel sounds, no guarding, no rebound Extremities: normal ROM, no swelling, non-tender Skin: intact, dry, warm, no rashes Neuro: AAOx3, speech is clear, no focal motor weakness Psych: Restless, poor eye contact, no apparent hallucination, normal speech Progress Results/Orders Results/Orders Orders - ANDREW BERRIOS MD Abdomen,Single View(Kub) (11/03/24 08:16) Cbc/Diff (11/03/24 08:37) Lipase (11/03/24 08:37) Urinalysis, Cult If Indicated (11/03/24 08:37) Electrocardiogram (11/03/24 08:37) Chest,Single View (11/03/24 08:37) Monitor (11/03/24 08:37) Saline Lock (11/03/24 08:37) Ethanol (11/03/24 08:37) Drug Screen, Urine (11/03/24 08:37) Ct Abdomen Pelvis (11/03/24 08:39) CMP (11/03/24 08:39) Completed Orders - ANDREW BERRIOS MD Abdomen,Single View(Kub) (11/03/24 08:16) Ondansetron Inj. (Zofran 4mg/2ml Vial) (11/03/24 08:40) Morphine 4mg/Ml Inj. (Morphine Inj.) (11/03/24 08:40) Chest,Single View (11/03/24 08:37) Vital Signs 11/03/24 11/03/24 11/03/24 07:13 07:30 07:35 Temp 98.0 98.0 Pulse 87 95 Resp 16 16 B/P (MAP) 118/88 124/91 (102) Pulse Ox 99 98 O2 Flow Rate 0 0 Medical Decision Making Additional info obtained from: old records Findings Differential diagnosis includes but is not limited to: Ingested foreign body, perforated viscus EKG independent interpretation: Patient refused Chest x-ray, single view, indication: Swallowed foreign body Independent interpretation: No free air identified, lungs are clear, normal mediastinum, normal cardiac silhouette, no foreign bodies identified in the abdomen or chest. No acute cardiopulmonary process KUB, single view, indication: Evaluate for foreign body Impression: Pre linear opaque objects in the small or large intestine. No free air identified. Also foreign body in the right lower quadrant. Laboratory data independent interpretation: CBC: CMP: Toxicology: Emergency department course/medical decision-making: Patient is a 43-year-old man who swallowed three razor blades and this is seen on the KUB. 8:50 a.m.: I was notified that the patient stormed out of his room and out of the ER through the ambulance [facility] stating he was going to get something to eat at the [facility]. Clinically I suspect the patient is using methamphetamine. Records review the last positive drug screen for methamphetamine was September 04. Departure Time of Disposition: 08:50 Disposition: 07 LEFT AWOL/ELOPED Impression: Primary Impression: Swallowed foreign body Qualified Codes: T18.9XXA - Foreign body of alimentary tract, part unspecified, initial encounter Additional Impression: Methamphetamine use Condition: Guarded Referrals: NO PRIMARY CARE PROVIDER (PCP) Signature Scribe Signature: No scribe Attestation: No scribe ANDREW BERRIOS MD Nov 03, 2024 08:48
--- NOTE | 2024-11-03 08:50 | RADIOLOGY REPORT ---
Exam: DI ABDOMEN,SINGLE VIEW(KUB) Indication: swallowed razors Comparison: DI ABDOMEN,SINGLE VIEW(KUB) on DOS: 09/04/24, DI ABDOMEN,SINGLE VIEW(KUB) on DOS: 06/30/24, D I ABDOMEN,SINGLE VIEW(KUB) on DOS: 06/26/24, DI ABDOMEN,SINGLE VIEW(KUB) on DOS: 06/24/24, DI ABDOMEN,S PAULA VIEW(KUB) on DOS: 12/24/22 Technique: 1 radiographic views of the abdomen. Findings: Nonobstructive bowel gas pattern noted. Moderate volume colonic stool. There is no definite evidence for pneumoperitoneum. No abnormal calcifications noted. Metallic foreign body overlies the ascending colon. 2 linear foreign bodies overlie the descending colon. Impression: Metallic foreign body overlies the ascending colon. 2 linear foreign bodies overlie the descending colon.
--- NOTE | 2024-11-03 09:16 | RADIOLOGY REPORT ---
EXAM: DI CHEST,SINGLE VIEW Indication: pain Technique: Single frontal view of the chest was obtained Comparison: DI CHEST,SINGLE VIEW on DOS: 08/15/24, DI CHEST,TWO VIEWS on DOS: 06/30/24, DI CHEST,SINGLE VIEW on DOS: 06/24/24, DI ABDOMEN,SINGLE VIEW(KUB) on DOS: 12/24/22, CHEST,SINGLE VIEW on DOS: 06/25/22 FINDINGS: Lines and Tubes: None Lungs: No focal consolidation. Pleura: No effusion. No pneumothorax. Cardiomediastinal contours: Unremarkable Bones: No acute osseous abnormality. IMPRESSION: No acute cardiopulmonary disease.
== END 2024-11-03 08:54 | disposition left against medical advice (07) ==
LOC: ER 07:07 → CANBEDREQ 07:51 → ER 08:54
DX: T18.9XXA Foreign body of alimentary tract, part unspecified, initial encounter (principal); F15.90 Other stimulant use, unspecified, uncomplicated; J45.909 Unspecified asthma, uncomplicated; K21.9 Gastro-esophageal reflux disease without esophagitis; F32.A Depression, unspecified; Z90.49 Acquired absence of other specified parts of digestive tract; Z59.00 Homelessness unspecified; Z72.89 Other problems related to lifestyle; W44.9XXA Unspecified foreign body entering into or through a natural orifice, initial encounter; Y93.89 Activity, other specified; Y92.89 Other specified places as the place of occurrence of the external cause; Y99.8 Other external cause status
CPT/HCPCS: 71045; 74018; 99284

== ENCOUNTER 2024-11-04 16:25 | Emergency (ER) | payer BC, MEDICAID ==
[~2024-11-04] VITALS: Ht 172.7 cm; Wt 84.1 kg
[2024-11-04 16:27] VITALS: TEMP 97.9
[2024-11-04 16:48] LABS: LEUKOCYTE ESTERASE ,URINE NEGATIVE (Neg); NITRITES, URINE NEGATIVE (Neg); OCCULT BLOOD,URINE NEGATIVE (Neg)
[2024-11-04 17:00] LABS: UA COLLECTION TYPE CLN CATCH MIDSTREAM
[2024-11-04 17:02] LABS: MUCUS STRANDS FEW /LPF (Neg); SQUAMOUS EPITHELIAL CELL,UR FEW /LPF (FEW)
[2024-11-04 17:02] LABS: MEAN PLATELET VOLUME 8.8 FL (7.4-10.4); RED CELL DISTRIBUTION WIDTH 13.8 % (11.5-14.5)
--- NOTE | 2024-11-04 17:11 | RADIOLOGY REPORT ---
Indication: fb Technique: DI ABDOMEN,SINGLE VIEW(KUB)[id number] Comparison: None FINDINGS/IMPRESSION: m radiopaque foreign body in the right measuring 2.8 cm., possibly in the hepatic flexure of the colo n. Radiopaque foreign body in the left midabdomen, possibly in the splenic flexure of the colon measurin g 3.7 cm. Radiopaque foreign body in the left lower quadrant of the abdomen measuring 5.2 x 3.8 cm, possibly wi thin the descending colon. Radiopaque foreign body within the mid pelvis region measuring 3.4 cm, possibly in the mid to distal small bowel or sigmoid colon. Moderate to large volume stool in the colon. No evidence for free intraperitoneal air.
[2024-11-04 17:17] LABS: CREATININE 1.15 MG/DL (0.60-1.10); TOTAL CARBON DIOXIDE 29.6 MMOL/L (24-32); eCRCL 78 ML/MIN; eGFR 69 ML/MIN
--- NOTE | 2024-11-04 18:29 | RADIOLOGY REPORT ---
Exam: CT CT ABDOMEN PELVIS History: possible foreign bodies; patient states he swallowed razor blades Comparison Study: Abdominal radiograph 11/04/[address] ABDOMEN PELVIS on DOS: 06/26/24, DI ACUTE ABDO MEN on DOS: 06/10/24, ABDOMEN,SINGLE VIEW(KUB) on DOS: 06/04/20 TECHNIQUE: Multidetector CT of the abdomen pelvis without IV contrast. Axial, coronal and sagittal mu ltiplanar reformats were obtained from the axial data set by the technologist. Radiation Dose Information: CT Dose: CTDI volume is basilar 16.06 mGy. Dose-length product is 778.3 mGy*cm FINDINGS: The lung bases are clear. Partially visualized heart is unremarkable. Mild hepatomegaly. Otherwise, liver, spleen, gallbladder, pancreas and adrenal glands are unremarkab le. Kidneys, ureters and urinary bladder are unremarkable. Prostate measures 3.4 x 4.7 x 3.6 cm. Small amount of fluid within the distal esophagus. Stomach is significantly distended and filled with ingested material. Mild wall thickening of proximal small bowel loops which may be due to inadequate distention. Appendix is not well-visualized. Moderate amount of fecal material within the colon. Mi ld rectal wall thickening. Postsurgical changes of the descending colon. Linear hyperdensity within the colon Over the hepatic flexure measuring up to 3-4 cm . Additional sh ort tubular radiopaque foreign body is noted over the distal transverse colon and sigmoid measuring u p to 4 cm. Additional linear hyperdensity is noted over the descending colon measuring up to 3-4 cm. No evidence of intraperitoneal free air or free fluid. No evidence of aortic aneurysm. No significant lymphadenopathy. Small fat containing bilateral inguinal hernias. Tiny fat containing umbilical hernia. Mild anterior wedge deformity of T12 which appears chronic. Sclerotic focus over the superior S1 vertebral body an d left femoral head which may represent bone islands with Blastic lesions not excluded. Small lytic l esion of the left femoral head. IMPRESSION: 3-4 cm linear foreign body within the Large bowel over the hepatic flexure and within the descending colon. Additional short tubular radiopaque foreign body is noted over the distal transverse colon and sigmoi d measuring up to 4 cm. 6.3 x 6.5 x 6.4 cm hypodensity over the right anterior lower abdomen / pelvis superior to the urinary bladder with suggested suture material which may represent conglomerate of bowel with Postsurgical c hanges which is not adequately assessed given noncontrast imaging. Recommend clinical correlation. Mild rectal wall thickening. Correlate for proctitis. Moderate amount of fecal material within the colon.
[2024-11-04 18:40] VITALS: BP 125/84; PULSE 91; O2SAT 100
--- NOTE | 2024-11-04 18:53 | Physician Documentation ---
History of Present Illness Chief Complaint: Foreign body Stated Complaint: STOMACH PAIN Time Seen by MD: 16:37 Primary Medical Doctor: none HPI PATIENT WELL KNOWN TO THIS ER PRESENTS WITH A COMPLAINT INGESTED FOREIGN BODIES WHICH CONSIST OF DISPOSABLE RAZOR BLADES IN HIS INTESTINES. NOT THE 1ST TIME THIS PATIENT HAS DONE THIS. HE WAS SEEN FOR THIS YESTERDAY BUT THEN LEFT BEFORE GETTING THE APPROPRIATE IMAGING. TODAY HE IS COMPLAINING OF ABDOMINAL PAIN STATES HE WAS NOT TRYING TO HARM HIMSELF WHEN HE WAS INGESTING RAZOR BLADES Day of Onset: Nov 04, 2024 Medication Reconciliation Allergies: Coded Allergies: No Known Allergies (Unverified , 11/03/24) Scheduled Cephalexin*Monohydrate* (Keflex*), 1 CAP PO QID Miscellaneous Medications Home Med List (No Home Medications), (Reported) Past Medical History Past Medical History: Asthma, GERD, *PSYCH*, Depression Past Surgical History: abdominal surgery, appendectomy Other Past Surgical History: abdominal surgery for foreign body removal Alcohol Use: Occasionally Drug Use: none Lives with: Other Lives In: Other Review of Systems All Other Systems at this time: Reviewed and Negative ROS As stated above in the HPI, otherwise all systems are reviewed and negative. Physical Exam Vital Signs: Temperature: 97.9, Source: Oral, Heart Rate: 91, Respiratory Rate: 18, BP: 125/84, Pulse Oximetry: 100, Weight: 84.100 Oxygen Flow Rate: 0 Physical Exam General: Alert, no apparent distress. Respiratory: Lungs clear, no respiratory distress. Gastrointestinal: Soft, nontender, nondistended. Bowels sounds present. Neurologic: Oriented x4. Psychiatric: Normal mood and affect. Skin: Normal color, warm and dry. No edema, no ecchymosis. Progress Results/Orders Results/Orders Orders - MOE HALEY COPPERSMITH HELPER Abdomen,Single View(Kub) (11/04/24 ) Ct Abdomen Pelvis (11/04/24 17:31) Completed Orders - MOE HALEY COPPERSMITH HELPER Abdomen,Single View(Kub) (11/04/24 ) Ct Abdomen Pelvis (11/04/24 17:31) Vital Signs 11/04/24 11/04/24 16:27 18:40 Temp 97.9 Pulse 92 91 Resp 16 18 B/P (MAP) 115/78 125/84 (98) Pulse Ox 99 100 O2 Flow Rate 0 Laboratory Tests Test 11/04/24 16:31 11/04/24 16:40 Urine Specimen Description Cln catch midstream Urine Color Dark yellow Urine Clarity Clear Urine pH 6.0 Urine Specific [place] >=1.030 Urine Protein 30 H Urine Glucose (UA) Negative Urine Ketones 15 H Urine Occult Blood Negative Urine Nitrite Negative Urine Bilirubin Negative Urine Urobilinogen 1.0 Urine Leukocyte Esterase Negative Urine RBC 3-10 Urine WBC 0-4 Urine Squamous Epithelial Cells Few Urine Bacteria Few Urine Mucus Few Urine Culture Indicated Not ind Volume Urine Centrifuged 10 ml Urine Comment White Blood Count 5.4 Red Blood Count 4.76 Hemoglobin 14.3 Hematocrit 42.2 Mean Corpuscular Volume 88.7 Mean Corpuscular Hemoglobin 30.1 Mean Corpuscular Hemoglobin Concent 34.0 Red Cell Distribution Width 13.8 Platelet Count 230 Mean Platelet Volume 8.8 Neutrophils (%) (Auto) 62.7 Lymphocytes (%) (Auto) 22.8 Monocytes (%) (Auto) 10.0 Eosinophils (%) (Auto) 4.0 Basophils (%) (Auto) 0.5 Neutrophils # (Auto) 3.4 Lymphocytes # (Auto) 1.2 Monocytes # (Auto) 0.5 Eosinophils # (Auto) 0.2 Basophils # (Auto) 0.0 CBC Comment Sodium Level 135 Potassium Level 3.9 Chloride Level 99 Carbon Dioxide Level 29.6 Anion Gap 6 L Blood Urea Nitrogen 20 H Creatinine 1.15 H Estimated GFR/1.73 m2 69 BUN/Creatinine Ratio 17.4 Glucose Level 121 H Calcium Level 8.7 Total Bilirubin 0.6 Aspartate Amino Transf (AST/SGOT) 18 Alanine Aminotransferase (ALT/SGPT) 23 Alkaline Phosphatase 97 Total Protein 8.0 Albumin 4.0 Globulin 4.0 Albumin/Globulin Ratio 1.0 L Lipase 22 Chemistry Comments Medical Decision Making Findings SPOKE TO GENERAL SURGEON DR. VALLE REGARDING THIS PATIENT: CT INDICATED THAT THE FOREIGN BODIES WHICH ARE SUSPECTED DISPOSABLE RAZORS HAVE PASSED TO THE DESCENDING COLON. DR. VALLE INDICATED THAT ONCE THEY HAVE MADE IT TO THE DESCENDING COLON HE WILL LIKELY PASS THROUGH THE RECTAL VAULT AND OUT OF THE ANUS WHEN HE HAS A BOWEL MOVEMENT. I EXPLAINED THIS TO THE PATIENT AND HE BECAME ANGRY AND STORMED OUT OF THE ED. INCIDENTALLY, THE PATIENT IS HEMODYNAMICALLY STABLE, LABORATORIES DO NOT INDICATE ANY SIGNS OF BLEEDING OR INFECTION. Differential Dx:Considerations: Include: AAA, Angina/CT, Aortic dissection, Appendicitis, Bowel obstruction, Cholangitis, Cholelithasis, Constipation, Diverticular disease, Esophageal rupture, Esophagitis, Gastritis/PUD, Gastroenteritis, GI hemorrhage, Hernia, Hepatitis, Inflammatory BD, Ischemic bowel, Pancreatitis, Porphyria, Testicular torsion, Trauma, intraabdominal, Urinary obstruction, Urinary tract infection, Urolithiasis, Other Departure Disposition: 01 HOME / SELF CARE / HOMELESS Impression: Primary Impression: Swallowed foreign body Additional Impressions: Methamphetamine abuse Observation following foreign body ingestion Referrals: NO PRIMARY CARE PROVIDER (PCP) Education Educated: Patient Educated regarding: diagnosis Signature Scribe Signature: K Attestation: Scribed for Moe Haley Organizational Development Director by Moe Godwin NP . 11/04/24 18:55 MOE HALEY NP Nov 04, 2024 18:53
[2024-11-04 19:00] VITALS: RESP 18
== END 2024-11-04 19:13 | disposition home or self-care (01) ==
LOC: ER 16:26
DX: T18.9XXA Foreign body of alimentary tract, part unspecified, initial encounter (principal); J45.909 Unspecified asthma, uncomplicated; F15.10 Other stimulant abuse, uncomplicated; K21.9 Gastro-esophageal reflux disease without esophagitis; F32.A Depression, unspecified; Z72.89 Other problems related to lifestyle; Z90.49 Acquired absence of other specified parts of digestive tract; W44.9XXA Unspecified foreign body entering into or through a natural orifice, initial encounter; Y93.89 Activity, other specified; Y92.89 Other specified places as the place of occurrence of the external cause; Y99.8 Other external cause status
CPT/HCPCS: 36415; 74018; 74176; 80053; 81001; 83690; 85025; 99284

== ENCOUNTER 2024-11-07 13:19 | Emergency (ER) | payer BC, MEDICAID ==
[~2024-11-07] VITALS: Ht 177.8 cm; Wt 85.0 kg
[2024-11-07 13:55] VITALS: BP 119/81; PULSE 110; RESP 20; TEMP 97.2; O2SAT 99
--- NOTE | 2024-11-07 14:05 | Physician Documentation ---
History of Present Illness ~ Chief Complaint: Foreign body Stated Complaint: ABDOMINAL PAIN Time Seen by MD: 13:58 Primary Medical Doctor: none HPI 43-year-old male well known to the ED returns stating that he has not pass the razor blades that were previously imaged . In his last visit here in the ED CT indicated that the razor blades were in the descending colon. This is explained to him that he will pass the razor blades eventually. He states he has not ingested more razor blades. He state he has not passed the razor blades through his stool Medication Reconciliation Allergies: Coded Allergies: No Known Allergies (Unverified , 11/07/24) Scheduled Cephalexin*Monohydrate* (Keflex*), 1 CAP PO QID Miscellaneous Medications Home Med List (No Home Medications), (Reported) Past Medical History Past Medical History: Asthma, GERD, *PSYCH*, Depression Past Surgical History: abdominal surgery, appendectomy Other Past Surgical History: abdominal surgery for foreign body removal Alcohol Use: Occasionally Drug Use: none Lives with: Other Lives In: Other Physical Exam Vital Signs: Temperature: 97.2, Source: Temporal, Heart Rate: 110, Respiratory Rate: 20, BP: 119/81, Pulse Oximetry: 99, Weight: 85.050 Physical Exam General: Alert, no apparent distress. Respiratory: Lungs clear, no respiratory distress. Gastrointestinal: Soft,tender llq, nondistended. Bowels sounds present. Neurologic: Oriented x4. Psychiatric: Normal mood and affect. Skin: Normal color, warm and dry. No edema, no ecchymosis. Progress Results/Orders Results/Orders Vital Signs 11/07/24 13:55 Temp 97.2 Pulse 110 Resp 20 B/P (MAP) 119/81 Pulse Ox 99 Medical Decision Making Findings Explained to the patient that his condition has not changed if he has not ingested more razor blades.He Needs to pass them through stool and this is via instruction from the on-call general surgeon during his previous visit Patient states that he has going to 'ingest more razor blades if we do not admit him for surgery' Diff Dx GI Bleed:Consideration: Include: AE fistula, Angiodysplasia, Bleeding diathesis, Blood loss anemia, Carcinoma, Diverticulosis, Diverticulitis, Esophageal varicies, Esophagitis, Gastritis, Gastroenteritis, Inflammatory BD, Diana-Alvarenga syndrome, Meckel's diverticulum, PUD, Other Diff Dx N/V/D:Considerations: Include: Appendicitis, Bowel obstruction, Dehydration, DKA, Diarrhea - bacterial, Diarrhea - parasitic, Diarrhea - viral, Diverticulitis, Diverticulosis, Drug toxicity, Electrolyte imbalance, Food poisoning, Gastroenteritis, GE reflux, GI bleed, Hepatitis, Hernia, Hypovolemia, Hypotension, Inflammatory BD, Impaction, Malnutrition, Pancreatitis, PUD, Renal failure, Urinary obstruction, UTI, Urolithiasis, Other Diff Dx Rectal:Considerations: Include: Fissure, Fistula, Foreign body, Impaction, Perirectal abscess, Prostatitis, Rectal prolapse, Subcutaneous abscess, Thrombosed hemorrhoid, Ulcer, UTI, Other Departure Disposition: 01 HOME / SELF CARE / HOMELESS Impression: Primary Impression: Swallowed foreign body Discharge Instructions: Foreign Body, Swallowed, Adult Additional Instructions: Stop eating razor blades. doing so, can potential of harming your intestinal tract and leading to a life-threatening emergency Referrals: NO PRIMARY CARE PROVIDER (PCP) Education Educated: Patient Educated regarding: diagnosis Signature Scribe Signature: freeman Attestation: Scribed for Emergency,Department by Dilip Godwin NP . 11/07/24 14:02 DILIP HALEY NP Nov 07, 2024 14:05
== END 2024-11-07 14:50 | disposition home or self-care (01) ==
LOC: ER 13:20
DX: T18.9XXA Foreign body of alimentary tract, part unspecified, initial encounter (principal); K21.9 Gastro-esophageal reflux disease without esophagitis; F32.A Depression, unspecified; J45.909 Unspecified asthma, uncomplicated; Z90.49 Acquired absence of other specified parts of digestive tract; Z72.89 Other problems related to lifestyle; W44.9XXA Unspecified foreign body entering into or through a natural orifice, initial encounter; Y93.89 Activity, other specified; Y92.89 Other specified places as the place of occurrence of the external cause; Y99.8 Other external cause status
CPT/HCPCS: 99282